=== PATIENT | female | born 1990 | race Caucasian/White ===

== ENCOUNTER 2017-04-04 13:19 | Emergency (ER) | payer OTHER ==
[~2017-04-04] VITALS: Wt 84.0 kg
--- NOTE | 2017-04-04 14:01 | ERD ---
ER Documentation Chief Complaint Chief Complaint 6wks with vag bleed started 4 days ago . no dysuria per pt. HPI 26-year-old female, at 6 weeks of by LMP 02/22/17, presents to the emergency department complaining of 2 days with mild vaginal spotting after urinating. Denies abdominal pain, no passing clots per vagina, denies leakage of fluid. No fever, chills. No history of trauma. The patient started care at [facility] ROS A 12-point review of systems was performed and negative other than presented in the history of present illness. SYSTEMIC symptoms: no fever, chills, no night sweats, no weight loss EYE symptoms: No blurred vision, no eye discharge OTOLARYNGEAL symptoms: No hearing loss. No ear pain, no sore throat CARDIOVASCULAR symptoms: No chest pain or discomfort, no palpitations. PULMONARY symptoms: No dyspnea, no cough, no wheezing. GASTROINTESTINAL symptoms: No abdominal pain, no nausea, no vomiting, no diarrhea MUSCULOSKELETAL symptoms: No arthralgias, no muscle aches. NEUROLOGY symptoms: No confusion, no syncope, no numbness or tingling. SKIN: No rashes Medications Home Meds Active Scripts Nitrofurantoin Monohyd Macrocr* (Macrobid*) 100 Mg Capsr, 100 MG PO BID for 7 Days, CAP Prov:ESTELA FERNANDES MD 04/04/17 Physical Exam Vitals Vital Signs Date Time Temp Pulse Resp B/P Pulse Ox O2 Delivery O2 Flow Rate FiO2 04/04/17 13:25 98.9 94 20 137/65 98 Physical Exam Patient is in no acute distress, vital signs stable. Alert and fully oriented. EYES: PERRLA, EOMI, Sclera and conjunctiva appear normal. EARS: Canals clear, tympanic membranes WNL THROAT: Normal oropharynx. NECK: Supple, No lymphadenopathy. Full ROM without pain or tenderness. HEART: RRR, no rubs, murmurs, clicks or gallops. LUNGS: Clear to auscultation. ABDOMEN: Soft, non-tender without masses or hepatosplenomegaly. EXTREMITIES: No edema bilaterally. BACK: Full ROM, no deformity, normal back exam NEURO: Cranial nerves grossly intact, no motor or sensory deficit Result Diagram: 04/04/17 1345 04/04/17 1345 Results 24 hrs Laboratory Tests Test 04/04/17 13:45 White Blood Count 10.210^3/ul Red Blood Count 4.5710^6/ul Hemoglobin 13.3g/dl Hematocrit 39.4% Mean Corpuscular Volume 86.2fl Mean Corpuscular Hemoglobin 29.1pg Mean Corpuscular Hemoglobin Concent 33.8g/dl Red Cell Distribution Width 12.3% Platelet Count 58773^3/UL Mean Platelet Volume 10.4fl Neutrophils % 66.8% Lymphocytes % 25.4% Monocytes % 5.3% Eosinophils % 1.5% Basophils % 0.7% Nucleated Red Blood Cells % 0.0/100WBC Neutrophils # 6.810^3/ul Lymphocytes # 2.610^3/ul Monocytes # 0.510^3/ul Eosinophils # 0.210^3/ul Basophils # 0.110^3/ul Nucleated Red Blood Cells # 0.010^3/ul Urine Color YELLOW Urine Clarity SLIGHTLY CLOUDY Urine pH 5.0 Urine Specific [place] 1.017 Urine Ketones NEGATIVEmg/dL Urine Nitrite NEGATIVEmg/dL Urine Bilirubin NEGATIVEmg/dL Urine Urobilinogen NEGATIVEmg/dL Urine Leukocyte Esterase 2+Cecilia/ul Urine Microscopic RBC 9/HPF Urine Microscopic WBC 22/HPF Urine Squamous Epithelial Cells MODERATE/HPF Urine Bacteria FEW/HPF Urine Mucus FEW/HPF Urine Hemoglobin 3+mg/dL Urine Glucose NEGATIVEmg/dL Urine Total Protein NEGATIVEmg/dl Sodium Level 144mmol/L Potassium Level 3.6mmol/L Chloride Level 106mmol/L Carbon Dioxide Level 25mmol/L Anion Gap 17 Blood Urea Nitrogen 11mg/dl Creatinine 0.71mg/dl Glucose Level 94mg/dl Calcium Level 9.3mg/dl Beta HCG, Quantitative 1077.5mIU/ml [place] [id number] Radiology Main Line: [phone] DIAGNOSTIC IMAGING REPORT Patient: MEAGAN SOSA : 1990 Age: 26 Sex: F MR #: [id number] DOS: 04/04/17 1336 Ordering MD: ESTELA FERNANDES MD Location: [facility] Room/Bed: PROCEDURE: US OB. CLINICAL INDICATION: Vaginal bleeding in . TECHNIQUE: Transabdominal and endovaginal imaging of the uterus is available for review COMPARISON: None available FINDINGS: There is a single intrauterine with a mean sac diameter of 0.54 cm, giving an estimated gestational age of 5 weeks 0 days by ultrasound criteria. No pole is detected. No subchorionic hemorrhage is identified. The ovaries are unremarkable. IMPRESSION: Single intrauterine with an estimated gestational age of 5 weeks 0 days by ultrasound criteria. No pole is identified. This may be secondary to early dates. Repeat pelvic ultrasound is recommended in 1 week. RPTAT: HH .Felicia Ventura MD, MD Date Time Electronically viewed and signed by .Felicia Ventura MD, MD on 04/04/2017 15 :30 .G/ CC: ESTELA FERNANDES MD Procedures/MDM 26-year-old female at approximately 6 weeks by LMP presents to the emergency department complaining of 1 day with mild vaginal spotting. Vital signs stable, Physical exam unremarkable. Differential diagnosis include but not limited to: UTI, threatening , incomplete versus complete , ectopic , physiologic implantation bleeding, molar . Pertinent Data: Labs: CBC: normal, BMP: normal kidney, normal electrolytes. HC,077.4 OB US: There is a single intrauterine with a mean sac diameter of 0.54 cm, giving an estimated gestational age of 5 weeks 0 days by ultrasound criteria. No pole is detected. No subchorionic hemorrhage is identified. The ovaries are unremarkable. Physical examination and clinical presentation most likely consistent with UTI and threatening . During the ED course the patient remained hemodynamically stable and asymptomatic. Results and clinical impression discussed with patient who agrees with management. The patient is stable to be treated outpatient and will be discharged home with a prescription for Macrobid and close monitoring and follow -up in 2 days with her primary physician, and return in 7 days to the emergency department to repeat ultrasound and hCG.. Bed rest and pelvic rest recommended until further medical evaluation. The patient was instructed regarding the outcomes and the potential complications like severe bleeding and . If the patient presents severe bleeding or pain, she was instructed to return to the hospital immediately. Disclaimer: Inadvertent spelling and grammatical errors are likely due to EHR/ dictation software use and do not reflect on the overall quality of patient care. Also, please note that the electronic time recorded on this note does not necessarily reflect the actual time of the patient encounter. Departure Diagnosis: Primary Impression: Vaginal bleeding in patient at less than 20 weeks gestation Additional Impression: UTI (urinary tract infection) Condition: Stable Patient Instructions: Bleeding During Early Additional Instructions: Muchas macrina por [facility] para nation servicio. Esperamos que en nation visita a la mary beth de emergencia nation problema medico haya sido solucionado y que se sienta mucho mejor. Para estar seguros que nation mejoria sigue en proceso, le pedimos el favor de hacer maday prisca de seguimiento medico con nation doctor primario en los proximos 2-4 abraham. Lleve con usted estos documentos y las medicinas recetadas. Si bouchra sintomas empeoran y no puede jose a nation doctor, por favor regrese a mary beth de emergencia. En to que usted no tenga un mdico de atencin primaria: Llame al mdico o clnica comunitaria de referencia que aparece abajo evaristo las horas de consultorio para hacer maday prisca para que le vean. CLINICAS: [facility] [phone] [facility] [phone] [facility] [phone] [facility] [phone] [facility] [phone] [facility]. [phone] MD Apr 04, 2017 14:01
[2017-04-04 14:02] LABS: BASOPHIL # 0.1 10^3/ul (0.0-0.1); BASOPHILS % 0.7 % (0.0-2.0); EOSINOPHILS # 0.2 10^3/ul (0.0-0.5); EOSINOPHILS % 1.5 % (0.0-7.0); HEMATOCRIT 39.4 % (37.0-47.0); HEMOGLOBIN 13.3 g/dl (12.0-16.0); LYMPHOCYTES # 2.6 10^3/ul (0.8-2.9); LYMPHOCYTES % 25.4 % (15.0-51.0); MEAN CORPUSCULAR HEMOGLOBIN 29.1 pg (29.0-33.0); MEAN CORPUSCULAR HGB CONC 33.8 g/dl (32.0-37.0); MEAN CORPUSCULAR VOLUME 86.2 fl (82.0-101.0); MEAN PLATELET VOLUME 10.4 fl (7.4-10.4); MONOCYTE # 0.5 10^3/ul (0.3-0.9); MONOCYTES % 5.3 % (0.0-11.0); NEUTROPHIL # 6.8 10^3/ul (1.6-7.5); NEUTROPHILS % 66.8 % (39.0-77.0); PLATELET COUNT 280 10^3/UL (140-415); RED BLOOD COUNT 4.57 10^6/ul (4.20-5.40); RED CELL DISTRIBUTION WIDTH 12.3 % (11.5-14.5); WHITE BLOOD COUNT 10.2 10^3/ul (4.8-10.8)
[2017-04-04 14:12] LABS: ADD UMIC YES; UR ASCORBIC ACID NEGATIVE (NEGATIVE); UR BACTERIA FEW /HPF (NONE SEEN); UR BILIRUBIN (Dip) NEGATIVE (NEGATIVE); UR BLOOD (Dip) 3+ mg/dL (NEGATIVE); UR CLARITY SLIGHTLY CLOUDY (CLEAR); UR COLOR YELLOW (YELLOW); UR GLUCOSE (Dip) NEGATIVE (NEGATIVE); UR KETONES (Dip) NEGATIVE (NEGATIVE); UR LEUKOCYTE ESTERASE (Dip) 2+ Leu/ul (NEGATIVE); UR MUCUS FEW /HPF (NONE SEEN); UR NITRITE (Dip) NEGATIVE (NEGATIVE); UR RBC 9 /HPF (0-5); UR SPECIFIC GRAVITY (Dip) 1.017 (1.003-1.030); UR SQUAMOUS EPITHELIAL CELL MODERATE /HPF (FEW); UR TOTAL PROTEIN (Dip) NEGATIVE (NEGATIVE); UR UROBILINOGEN (Dip) NEGATIVE (NEGATIVE)
[2017-04-04 14:19] LABS: CALCIUM 9.3 mg/dl (8.4-10.2); CREATININE 0.71 mg/dl (0.44-1.00); POTASSIUM 3.6 mmol/L (3.5-5.1)
--- NOTE | 2017-04-04 15:31 | RADRPT ---
PROCEDURE: US OB. CLINICAL INDICATION: Vaginal bleeding in . TECHNIQUE: Transabdominal and endovaginal imaging of the uterus is available for review COMPARISON: None available FINDINGS: There is a single intrauterine with a mean sac diameter of 0.54 cm, giving an estimated ge stational age of 5 weeks 0 days by ultrasound criteria. No pole is detected. No subchorionic hemorrhage is identified. The ovaries are unremarkable. IMPRESSION: Single intrauterine with an estimated gestational age of 5 weeks 0 days by ultrasound crit eria. No pole is identified. This may be secondary to early dates. Repeat pelvic ultrasound is recommended in 1 week. RPTAT: HH .Felicia Ventura MD, Date Time Electronically viewed and signed by .Felicia Ventura MD, on 04/04/2017 15:30 .G/
[2017-04-04] MEDS ORDERED: NITR-58 PO (16:03)
[2017-04-04 16:17] VITALS: BP 116/66; PULSE 70; RESP 20; TEMP 99
== END 2017-04-04 16:17 | disposition home or self-care (01) ==
LOC: FTE 13:19
DX: O20.9 Hemorrhage in early pregnancy, unspecified (principal); O23.41 Unspecified infection of urinary tract in pregnancy, first trimester; R10.2 Pelvic and perineal pain; Z3A.01 Less than 8 weeks gestation of pregnancy
CPT/HCPCS: 36415; 76801; 76817; 80048; 81001; 84702; 85025; 86900; 86901; 87086; Z7502

== ENCOUNTER 2018-01-28 02:07 | Inpatient (IN) | END 2018-01-30 16:20 | disposition home or self-care (01) | DRG 807 ==